=== PATIENT | male | born 1965 | race African-American/Black ===

== ENCOUNTER 2016-11-08 22:13 | Emergency (ER) | payer OTHER, SELFPAY ==
--- NOTE | 2016-11-08 23:00 | RAD ---
THREE VIEWS OF THE RIGHT FOOT 11/08/16 HISTORY: Right foot swelling and pain for a week. FINDINGS: Three views of the right shows no evidence of acute fracture or dislocation. No degenerative changes are seen. Mild diffuse soft tissue swelling is present. IMPRESSION: No evidence of acute abnormality. POS: [facility]
[2016-11-08] MEDS ORDERED: Sulfameth/Trimethoprim DS 800-160mg TAB ONE (23:12)
[2016-11-08] MEDS ORDERED: traMADol HCl 50 MG TAB ONE (23:12)
== END 2016-11-08 23:35 | disposition home or self-care (01) ==
LOC: BURERS 22:13
DX: L03.031 Cellulitis of right toe (principal)

== ENCOUNTER 2016-12-06 21:29 | Emergency (ER) | payer OTHER ==
[2016-12-06 22:19] LABS: Hemoglobin 11.7 g/dL (14.0-18.0); Mean Corpuscular HGB CONC 31.6 g/dL (32.0-36.0); Mean Corpuscular Hemoglobin 23.2 pg (27.0-31.0); Mean Corpuscular Volume 73.4 fl (80.0-94.0); Platelet Count 267 thou/uL (130-400); RBC Distribution Width 13.9 % (11.5-14.5); Red Blood Cell (RBC) Count 5.04 mill/uL (4.70-6.10)
[2016-12-06 22:24] LABS: ALT (SGPT) 52 U/L (0-55); AST (SGOT) 26 U/L (5-34); Albumin 4.1 g/dL (3.5-5.0); Alkaline Phosphatase 78 U/L (40-150); Anion Gap 13 mmol/L (10-20); BUN (Urea Nitrogen) 11 mg/dL (8.9-20.6); Bilirubin, Total 0.3 mg/dL (0.2-1.2); Calc. Creatinine Clearance 0 mL/min (70-130); Calcium 9.1 mg/dL (7.8-10.44); Carbon Dioxide 25 mmol/L (22-29); Chloride 107 mmol/L (98-107); Estimated GFR-MDRD 66; Globulin 3.1 g/dL (2.4-3.5); Glucose 119 mg/dL (70-105); Potassium 3.5 mmol/L (3.5-5.1); Protein, Total 7.2 g/dL (6.0-8.3); Sodium 141 mmol/L (136-145)
[2016-12-06 22:25] LABS: CKMB 1.2 ng/mL (0-6.6); Troponin I Less than 0.010 ng/mL (< 0.028)
[2016-12-06 22:29] LABS: Eosinophils 4 % (0-10); Hypochromia MODERATE=16-30 cells (100X) (0-5/hpf); Lymphocytes 41 % (21-51); MDiff Complete? YES; Microcytosis MODERATE=15-30 cells (100X) (0-5/hpf); Monocytes 15 % (0-10); Neutrophil 40 % (42-75); PLT Morphology Comment Appears Adequate
== END 2016-12-06 22:45 | disposition home or self-care (01) ==
LOC: BURERS 21:29
DX: D64.9 Anemia, unspecified (principal); I95.1 Orthostatic hypotension
CPT/HCPCS: 80053; 82553; 84484; 85025; 93005

== ENCOUNTER 2017-05-10 10:46 | Emergency (ER) | payer OTHER ==
[2017-05-10 11:17] LABS: #Eosinphils 0.2 thou/uL (0.0-0.7); #Lymphocytes 1.5 thou/uL (1.20-3.40); #Monocytes 0.5 thou/uL (0.11-0.59); #Neutrophils 1.4 thou/uL (1.40-6.50); %Basophils 0.9 % (0.0-1.0); %Eosinophils 4.6 % (0.0-10.0); %Lymphocytes 41.8 % (21.0-51.0); %Monocytes 12.9 % (0.0-10.0); %Neutrophils 39.7 % (42.0-75.0); Hemoglobin 13.1 g/dL (14.0-18.0); Hypochromia SLIGHT = 6-15 cells (100X) (0-5/hpf); MDiff Complete? YES; Mean Corpuscular HGB CONC 31.4 g/dL (32.0-36.0); Mean Corpuscular Hemoglobin 22.8 pg (27.0-31.0); Mean Corpuscular Volume 72.7 fl (80.0-94.0); Mean Platelet Volume 7.9 fL (7.4-10.4); Microcytosis SLIGHT = 6-15 cells (100X) (0-5/hpf); Platelet Count 208 thou/uL (130-400); RBC Distribution Width 13.5 % (11.5-14.5); Red Blood Cell (RBC) Count 5.72 mill/uL (4.70-6.10); White Blood Cell (WBC) Count 3.6 thou/uL (4.8-10.8)
[2017-05-10 11:33] LABS: ALT (SGPT) 36 U/L (8-55); AST (SGOT) 33 U/L (5-34); Albumin 4.5 g/dL (3.5-5.0); Alkaline Phosphatase 51 U/L (40-150); Anion Gap 14 mmol/L (10-20); BUN (Urea Nitrogen) 15 mg/dL (8.9-20.6); Bilirubin, Total 0.5 mg/dL (0.2-1.2); Calc. Creatinine Clearance 0 mL/min (70-130); Calcium 9.5 mg/dL (7.8-10.44); Carbon Dioxide 24 mmol/L (22-29); Chloride 109 mmol/L (98-107); Estimated GFR-MDRD 62; Globulin 3.3 g/dL (2.4-3.5); Glucose 113 mg/dL (70-105); Potassium 3.9 mmol/L (3.5-5.1); Protein, Total 7.8 g/dL (6.0-8.3); Sodium 143 mmol/L (136-145)
[2017-05-10 11:35] LABS: CKMB 3.8 ng/mL (0-6.6); Troponin I Less than 0.010 ng/mL (< 0.028)
--- NOTE | 2017-05-10 11:41 | RAD ---
TWO VIEW CHEST: COMPARISON: 03/24/12. INDICATION: Chest pain. FINDINGS: Cardiac silhouette is stable. There is no lobar consolidation, effusion, or discrete pneumothorax. Osseous structures are intact. IMPRESSION: No focal consolidation. POS: [facility]
== END 2017-05-10 11:51 | disposition home or self-care (01) ==
LOC: BURERS 10:46
DX: S39.012A Strain of muscle, fascia and tendon of lower back, initial encounter (principal); R07.89 Other chest pain; X58.XXXA Exposure to other specified factors, initial encounter
CPT/HCPCS: 71020; 80053; 82553; 83880; 84484; 85025; 93005

== ENCOUNTER 2020-04-26 19:46 | Emergency (ER) | payer OTHER, SELFPAY ==
[~2020-04-26 19:46] MED LIST: Iopamidol 370 76% 100 ML VIAL ONE
[2020-04-26 20:33] LABS: #Basophils 0.1 thou/uL (0.0-0.2); #Eosinphils 0.2 thou/uL (0.0-0.7); #Lymphocytes 1.7 thou/uL (1.20-3.40); #Monocytes 0.6 thou/uL (0.11-0.59); #Neutrophils 1.9 thou/uL (1.40-6.50); %Basophils 1.9 % (0.0-1.0); %Eosinophils 5.6 % (0.0-10.0); %Lymphocytes 37.7 % (21.0-51.0); %Monocytes 12.9 % (0.0-10.0); %Neutrophils 41.9 % (42.0-75.0); Anisocytosis SLIGHT = 6-15 cells (100X) (0-5/hpf); Hemoglobin 12.5 g/dL (14.0-18.0); Hypochromia SLIGHT = 6-15 cells (100X) (0-5/hpf); MDiff Complete? YES; Mean Corpuscular HGB CONC 29.4 g/dL (32.0-36.0); Mean Corpuscular Hemoglobin 21.8 pg (27.0-31.0); Mean Platelet Volume 8.4 fL (7.4-10.4); Microcytosis SLIGHT = 6-15 cells (100X) (0-5/hpf); Ovalocytes SLIGHT = 2-5 cells (100X) (0-1/hpf); Platelet Count 207 thou/uL (130-400); Poikilocytosis SLIGHT = 6-15 cells (100X) (0-5/hpf); Red Blood Cell (RBC) Count 5.73 mill/uL (4.70-6.10); White Blood Cell (WBC) Count 4.4 thou/uL (4.8-10.8)
[2020-04-26 20:38] LABS: ALT (SGPT) 25 U/L (8-55); AST (SGOT) 22 U/L (5-34); Albumin 4.6 g/dL (3.5-5.0); Alkaline Phosphatase 51 U/L (40-110); Anion Gap 15 mmol/L (10-20); BUN (Urea Nitrogen) 11 mg/dL (8.4-25.7); Bilirubin, Total 0.4 mg/dL (0.2-1.2); Calc. Creatinine Clearance 0 mL/min (70-130); Calcium 9.4 mg/dL (7.8-10.44); Carbon Dioxide 23 mmol/L (22-29); Chloride 105 mmol/L (98-107); Estimated GFR-MDRD 62; Globulin 2.9 g/dL (2.4-3.5); Glucose 107 mg/dL (70-105); Potassium 3.4 mmol/L (3.5-5.1); Protein, Total 7.5 g/dL (6.0-8.3); Sodium 140 mmol/L (136-145)
--- NOTE | 2020-04-26 21:13 | RAD ---
PORTABLE CHEST: 04/26/20 An AP portable film at 2017 is compared with a 03/17/18 study. The heart remains normal in size and the lungs are clear. No infiltrate or effusion was seen. There i s no vascular congestion or edema. The mediastinal contours showed no finding of concern. IMPRESSION: No acute thoracic finding. POS: [facility]
--- NOTE | 2020-04-26 21:42 | CT ---
CT AORTIC DISSECTOIN: 04/26/[address] of the chest and abdomen was done using a bolus of IV contrast. Reconstructions were done t hrough the aorta in various planes. The aorta was unremarkable in appearance and shows no sign of dis section or aneurysm. The celiac artery, superior mesenteric artery, inferior mesenteric artery, satish l arteries, and common and internal/external iliac arteries all fill well and show no dilation. The thoracic angio shows clear lungs and no effusions. No mediastinal adenopathy was seen. The major finding on this study is markedly enlarged para-aortic and nearby retroperitoneal nodes. Th ere is one large vascular mass in the right lower quadrant that measures nearly 6 cm in size and is v zandra vascular. It is very similar in characteristics to the para-aortic nodes suggesting that it is a very large right external iliac node. Diffuse fatty infiltration of the liver is present. The liver and spleen are normal in size and show no space occupying lesions. The gallbladder showed no stones. The pancreas, adrenal glands, and kidne ys are unremarkable. There was no distention of bowel or bowel wall thickening. I do not see enlarged mesenteric nodes. Th e appendix appears normal. IMPRESSION: 1. Marked retroperitoneal adenopathy, primarily in the para-aortic region bilaterally and one pa rticularly large right external iliac node. Lymphoproliferative diseases such as lymphoma or leukemi a should be considered. 2. Diffuse fatty infiltration of the liver. Preliminary results discussed with Dr. Gross at 2126 on 04/26/20. POS: [facility]
== END 2020-04-26 22:15 | disposition home or self-care (01) ==
LOC: BURERS 19:46
DX: R55 Syncope and collapse (principal); C85.93 Non-Hodgkin lymphoma, unspecified, intra-abdominal lymph nodes; C85.98 Non-Hodgkin lymphoma, unspecified, lymph nodes of multiple sites
CPT/HCPCS: 36415; 71045; 71275; 72191; 74175; 80053; 84484; 85025; 93005; Q9967

== ENCOUNTER 2021-05-30 15:45 | Emergency (ER) | payer OTHER, SELFPAY ==
[2021-05-30] MEDS ORDERED: Acetaminophen 325 MG TAB ONE (16:54)
[2021-05-30 17:02] LABS: Hemoglobin 12.6 g/dL (14.0-18.0); Mean Corpuscular HGB CONC 30.6 g/dL (32.0-36.0); Mean Corpuscular Hemoglobin 22.2 pg (27.0-31.0); Mean Corpuscular Volume 72.5 fL (78.0-98.0); Mean Platelet Volume 8.6 fL (7.4-10.4); Platelet Count 185 thou/uL (130-400); RBC Distribution Width 13.2 % (11.5-14.5); Red Blood Cell (RBC) Count 5.67 mill/uL (4.70-6.10); White Blood Cell (WBC) Count 3.5 thou/uL (4.8-10.8)
[2021-05-30 17:03] LABS: ALT (SGPT) 43 U/L (8-55); AST (SGOT) 32 U/L (5-34); Albumin 4.3 g/dL (3.5-5.0); Alkaline Phosphatase 51 U/L (40-110); Anion Gap 15 mmol/L (10-20); BUN (Urea Nitrogen) 11 mg/dL (8.4-25.7); Bilirubin, Total 0.4 mg/dL (0.2-1.2); Calc. Creatinine Clearance 0 mL/min (70-130); Calcium 9.6 mg/dL (7.8-10.44); Carbon Dioxide 24 mmol/L (22-29); Chloride 103 mmol/L (98-107); Globulin 3.7 g/dL (2.4-3.5); Glucose 103 mg/dL (70-105); Potassium 3.9 mmol/L (3.5-5.1); Sodium 138 mmol/L (136-145)
[2021-05-30 17:06] LABS: Band 20 % (5-11); Eosinophils 2 % (0-10); Hypochromia SLIGHT = 6-15 cells (100X) (0-5/hpf); Lymphocytes 8 % (21-51); MDiff Complete? YES; Microcytosis SLIGHT = 6-15 cells (100X) (0-5/hpf); Monocytes 16 % (0-10); Neutrophil 49 % (42-75); Reactive Lymphocytes 5 % (0-10)
[2021-05-30 18:38] LABS: Bilirubin Negative (Negative); Blood, Urine Negative (Negative); Clarity Clear (Clear); Glucose, Urine (Dipstick) Negative (Negative); Ketone, Urine Trace mg/dL (Negative); Leukocyte Negative (Negative); Nitrite Negative (Negative); Protein, Urine (Dipstick) 30 mg/dL (Neg-Trace); Specific Gravity, Urine 1.025 (1.005-1.030); pH, Urine 5.5 (5.0-9.0)
[2021-05-30 18:41] LABS: Bacteria/HPF 3+ HPF (None Seen); Mucous/LPF 3+ LPF (<2+); RBC/HPF 0-3 HPF (0-3); Squamous Epithelial None Seen HPF (0-3); WBC/HPF 0-3 HPF (0-3)
[2021-05-31 08:33] LABS: SARS-CoV-2 PCR by NAA Not Detected (NotDetected)
== END 2021-05-30 19:01 | disposition home or self-care (01) ==
LOC: BURERS 15:45
DX: R50.9 Fever, unspecified (principal); R21 Rash and other nonspecific skin eruption; H40.9 Unspecified glaucoma; Z20.822 Contact with and (suspected) exposure to COVID-19; Z85.72 Personal history of non-Hodgkin lymphomas
CPT/HCPCS: 36415; 71045; 80053; 81003; 81015; 83605; 84484; 85025; U0003; U0005

== ENCOUNTER 2021-08-04 09:02 | Emergency (ER) | payer OTHER, SELFPAY | END 2021-08-04 10:17 | disposition home or self-care (01) | LOC: BURERS 09:02 | DX: S16.1XXA Strain of muscle, fascia and tendon at neck level, initial encounter (principal); V43.52XA Car driver injured in collision with other type car in traffic accident, initial encounter | CPT/HCPCS: 72040 ==

== ENCOUNTER 2022-10-17 09:17 | Outpatient (CLI) | payer OTHER | END 2022-10-17 09:18 | disposition home or self-care (01) | LOC: BURRAD 09:17 | PROVIDERS: ATTEND Family Medicine | DX: M25.512 Pain in left shoulder (principal) ==

== ENCOUNTER 2022-12-22 19:42 | Emergency (ER) | payer OTHER ==
[2022-12-22] MEDS ORDERED: Aspirin Chewable 81 MG TAB ONE (20:08)
[2022-12-22 20:24] LABS: #Basophils 0.1 thou/uL (0.0-0.2); #Eosinphils 0.2 thou/uL (0.0-0.7); #Lymphocytes 1.2 thou/uL (1.20-3.40); #Monocytes 0.5 thou/uL (0.11-0.59); #Neutrophils 1.9 thou/uL (1.40-6.50); %Basophils 1.8 % (0.0-1.0); %Eosinophils 6.2 % (0.0-10.0); %Lymphocytes 30.2 % (21.0-51.0); %Monocytes 13.2 % (0.0-10.0); %Neutrophils 48.6 % (42.0-75.0); Hemoglobin 11.7 g/dL (14.0-18.0); Mean Corpuscular HGB CONC 31.4 g/dL (32.0-36.0); Mean Corpuscular Hemoglobin 22.2 pg (27.0-31.0); Mean Corpuscular Volume 70.5 fl (78.0-98.0); Mean Platelet Volume 8.4 fL (7.4-10.4); Platelet Count 211 10x3/uL (130-400); RBC Distribution Width 13.3 % (11.5-14.5); Red Blood Cell (RBC) Count 5.26 mill/uL (4.70-6.10); White Blood Cell (WBC) Count 3.8 10x3/uL (4.8-10.8)
[2022-12-22 20:35] LABS: ALT (SGPT) 27 U/L (8-55); AST (SGOT) 24 U/L (5-34); Albumin 4.3 g/dL (3.5-5.0); Alkaline Phosphatase 65 U/L (40-110); Anion Gap 11 mmol/L (10-20); BUN (Urea Nitrogen) 9 mg/dL (8.4-25.7); Bilirubin, Total 0.3 mg/dL (0.2-1.2); Calc. Creatinine Clearance 0 mL/min (70-130); Calcium 9.4 mg/dL (7.8-10.44); Carbon Dioxide 21 mmol/L (22-29); Chloride 112 mmol/L (98-107); Estimated GFR 64; Globulin 3.4 g/dL (2.4-3.5); Glucose 107 mg/dL (70-105); Potassium 3.4 mmol/L (3.5-5.1); Protein, Total 7.7 g/dL (6.0-8.3); Sodium 141 mmol/L (136-145)
[2022-12-22 20:39] LABS: MDiff Complete? YES; Microcytosis SLIGHT = 6-15 cells (100X) (0-5/hpf); Platelet Morphology Comment Appears Adequate
== END 2022-12-22 22:16 | disposition home or self-care (01) ==
LOC: BURERS 19:42
DX: R07.9 Chest pain, unspecified (principal)
CPT/HCPCS: 71046; 71275; 80053; 83880; 84484; 85025; 85379; 93005; 94760; Q9967

== ENCOUNTER 2024-02-07 23:02 | Emergency (ER) | payer OTHER, SELFPAY ==
[2024-02-07] MEDS ORDERED: Ketorolac Tromethamine 30 MG (1 mL) VIAL ONE (23:38)
[2024-02-07] MEDS ORDERED: Ondansetron PF 4 MG/2 ML Vial ONE (23:39)
[2024-02-07 23:54] LABS: #Eosinphils 0.1 thou/uL (0.0-0.7); #Lymphocytes 0.6 thou/uL (1.20-3.40); #Monocytes 0.6 thou/uL (0.11-0.59); #Neutrophils 5.9 thou/uL (1.40-6.50); %Basophils 0.6 % (0.0-1.0); %Eosinophils 1.2 % (0.0-10.0); %Monocytes 7.8 % (0.0-10.0); %Neutrophils 82.4 % (42.0-75.0); Hematocrit 36.6 % (42.0-52.0); Hemoglobin 11.2 g/dL (14.0-18.0); Mean Corpuscular HGB CONC 30.6 g/dL (32.0-36.0); Mean Corpuscular Hemoglobin 20.8 pg (27.0-31.0); Mean Corpuscular Volume 68.1 fl (78.0-98.0); Mean Platelet Volume 7.5 fL (7.4-10.4); Platelet Count 246 10x3/uL (130-400); RBC Distribution Width 13.6 % (11.5-14.5); Red Blood Cell (RBC) Count 5.37 mill/uL (4.70-6.10); White Blood Cell (WBC) Count 7.2 10x3/uL (4.8-10.8)
[2024-02-07 23:57] LABS: MDiff Complete? YES; Microcytosis SLIGHT = 6-15 cells (100X) (0-5/hpf); Platelet Adequacy Comment Appears Adequate
[2024-02-08 00:01] LABS: ALT (SGPT) 24 U/L (8-55); AST (SGOT) 18 U/L (5-34); Albumin 4.1 g/dL (3.5-5.0); Alkaline Phosphatase 69 U/L (40-110); Anion Gap 14 mmol/L (10-20); BUN (Urea Nitrogen) 12 mg/dL (8.4-25.7); Bilirubin, Total 0.4 mg/dL (0.2-1.2); Calc. Creatinine Clearance 0 mL/min (70-130); Calcium 9.1 mg/dL (7.8-10.44); Carbon Dioxide 23 mmol/L (22-29); Chloride 104 mmol/L (98-107); Estimated GFR 45; Globulin 3.3 g/dL (2.4-3.5); Glucose 212 mg/dL (70-105); Lipase 22 U/L (8-78); Potassium 3.8 mmol/L (3.5-5.1); Protein, Total 7.4 g/dL (6.0-8.3); Sodium 137 mmol/L (136-145)
[2024-02-08 00:11] LABS: Bilirubin Negative (Negative); Blood, Urine Small (Negative); Clarity Clear (Clear); Glucose, Urine (Dipstick) 100 mg/dL (Negative); Ketone, Urine Negative (Negative); Leukocyte Negative (Negative); Nitrite Negative (Negative); Protein, Urine (Dipstick) Negative (Neg-Trace); Specific Gravity, Urine 1.025 (1.005-1.030)
[2024-02-08 00:25] LABS: Bacteria/HPF Rare-Few HPF (None Seen); CAUTI Indications for Culture Dysuria,urgency,freq; RBC/HPF 0-3 HPF (0-3); Squamous Epithelial 0-3 HPF (0-3); WBC/HPF 0-3 HPF (0-3)
[2024-02-08 00:26] LABS: Urine Culture Reflex No No
== END 2024-02-08 00:55 | disposition home or self-care (01) ==
LOC: BURERS 23:02
DX: N13.30 Unspecified hydronephrosis (principal); C83.38 Diffuse large B-cell lymphoma, lymph nodes of multiple sites
CPT/HCPCS: 74176; 80053; 81001; 83690; 85025; 96374; 96375; J1885; J2405

== ENCOUNTER 2024-08-15 11:37 | Emergency (ER) | payer SELFPAY | END 2024-08-15 12:15 | disposition home or self-care (01) | LOC: BURERS 11:37 | DX: L20.9 Atopic dermatitis, unspecified (principal) | CPT/HCPCS: 99282 ==